=== PATIENT | female | born 1955 | race Caucasian/White ===

== ENCOUNTER 2022-07-01 08:16 | Outpatient (CLI) | payer MEDICARE, SELFPAY ==
[2022-07-01 20:44] LABS: Alanine Aminotransferase 25 U/L (6-35); Albumin Level 4.1 g/dL (3.5-5.1); Alkaline Phosphatase 52 U/L (38-126); Anion Gap 4 mmol/L (8-16); Aspartate Amino Transferase 39 U/L (14-36); Bilirubin,Total 0.7 mg/dL (0.2-1.3); Blood Urea Nitrogen 16 mg/dL (7-17); Calcium 9.2 mg/dL (8.4-10.2); Carbon Dioxide 28 mmol/L (22-30); Chloride 105 mmol/L (98-107); Cholesterol 136 mg/dL (0-200); Estimated Glomerular Filt Rate > 60; Glucose 111 mg/dL (65-110); HDL Direct 30 mg/dL; Potassium 4.4 mmol/L (3.4-5.0); Sodium 137 mmol/L (137-145); Triglycerides 177 mg/dL (<150)
[2022-07-01 20:45] LABS: Basophils Absolute Auto 0.1 K/mm3 (0.0-0.1); Basophils Percent Auto 0.9 % (0.2-1.2); Eosinophils Absolute Auto 0.2 K/mm3 (0-0.3); Eosinophils Percent Auto 2.6 % (0-4.4); Hematocrit 42.6 % (37.0-47.0); Immature Granulocyte Absolute 0.02 K/mm3 (0.00-0.031); Immature Granulocyte Percent A 0.3 % (0-0.5); Lymphocytes Absolute Auto 2.29 K/mm3 (0.9-3.2); Lymphocytes Percent Auto 34.8 % (18.3-44.2); Mean Corpuscular HGB Conc 32.9 g/dl (32-36); Mean Corpuscular Hemoglobin 28.2 pg (26-34); Mean Corpuscular Volume 85.7 fl (80-100); Mean Platelet Volume 11.1 fl (7.4-10.4); Monocytes Absolute Auto 0.6 K/mm3 (0.1-0.6); Monocytes Percent Auto 8.7 % (2.6-8.5); Neutrophils Absolute Auto 3.5 K/mm3 (1.3-6.7); Neutrophils Percent Auto 52.7 % (45.5-73.1); Platelet Count Result 283 k/mm3 (150-375); Red Blood Count 4.97 M/mm3 (4.2-5.4); Red Cell Distribution Width 13.6 % (11.5-14.5); White Blood Count 6.6 K/mm3 (4.5-10.0)
[2022-07-01 20:55] LABS: LDL Cholesterol Direct 70 mg/dL
[2022-07-01 21:07] LABS: Hemoglobin A1C 6.2 % (<5.7)
== END 2022-07-01 08:17 | disposition home or self-care (01) ==
LOC: ANHGOSHLAB 08:18
PROVIDERS: PCP Family Medicine; Visit Provider Physician Assistant
DX: E78.5 Hyperlipidemia, unspecified (principal); I10 Essential (primary) hypertension; Z83.49 Family history of other endocrine, nutritional and metabolic diseases; Z79.899 Other long term (current) drug therapy
CPT/HCPCS: 36415; 80053; 80061; 83036; 84443; 85025

== ENCOUNTER 2022-07-01 09:02 | Outpatient (CLI) | payer MEDICARE, SELFPAY ==
--- NOTE | ~2022-07-01 | US_ITS ---
US abdomen limited INDICATION: Right upper quadrant pain for 2 weeks PROCEDURE: Realtime right upper abdominal ultrasound. COMPARISON: No prior studies for comparison. FINDINGS: The pancreas is normal without focal mass or pancreatic ductal dilation. Liver echotexture is normal without focal mass or intrahepatic biliary dilatation. There is normal directional flow i n the portal vein. The gallbladder is normal without stones, gallbladder wall thickening or pericholecystic fluid. Comm on bile duct measures 4 mm. No sonographic Rodriguez's sign. IMPRESSION: 1: Normal limited abdominal ultrasound. Reviewed, dictated and finalized at location B. [employer]
== END 2022-07-01 09:03 | disposition home or self-care (01) ==
PROVIDERS: PCP Family Medicine; Visit Provider Physician Assistant
DX: R10.11 Right upper quadrant pain (principal); E78.5 Hyperlipidemia, unspecified; I10 Essential (primary) hypertension; Z83.49 Family history of other endocrine, nutritional and metabolic diseases; Z79.899 Other long term (current) drug therapy
CPT/HCPCS: 36415; 76705; 80053; 80061; 83036; 84443; 85025

== ENCOUNTER 2022-07-14 08:40 | Outpatient (CLI) | payer MEDICARE, SELFPAY ==
--- NOTE | ~2022-07-14 | DEXA_ITS ---
Bone Density Report Name: LAUREL SNOW Age: 66 Sex: Female Ethnicity: White Date of : 1955 Indication: postmenopausal; screening for osteoporosis; height loss; hysterectomy; Referring Provider: WIL PAUL Study: Bone densitometry was performed. Exam Date: July 14, 2022 Accession number: [id number] Bone Density: Region BMD T-score Z-score Classification AP Spine(L1-L4) 1.060 0.1 2.2 Normal Femoral Neck (Left) 0.681 -1.5 0.2 Osteopenia Total Hip (Left) 0.906 -0.3 1.1 Normal Femoral Neck (Right) 0.633 -1.9 -0.2 Osteopenia Total Hip (Right) 0.818 -1.0 0.4 Normal Total Hip Mean 0.862 -0.7 0.8 Normal World Health Organization criteria for BMD impression classify patients as: Normal (T-score at or above -1.0), Osteopenia (T-score between -1.0 and -2.5), or Osteoporosis (T-score at or below -2.5). 10-year Fracture Risk(1): Major Osteoporotic Fracture 11% Hip Fracture 1.8% Reported Risk Factors: [place] (), Neck BMD=0.633, BMI=30.6 (1) FRAX(R) Version 3.08. Fracture probability calculated for an untreated patient. Fracture probability may be lower if the patient has received treatment. Clinical Information Provided by Patient: Has the following medical conditions: Hysterectomy Patient maximum height was 64.5 Menopause Age: 40 No regular weight bearing exercise Drinks caffeinated beverages Onset of menses at age 11 Number of children 7 Impression: The patient has low bone mass, based on the Right Femoral Neck T-score. The patient has an estimated ten-year risk of hip fracture of 1.8% and an estimated ten-year risk of major fracture of 11%, based on the WHO FRAX algorithm. Discussion: BONE DENSITY IS LOW AT ONE OR MORE SKELETAL SITES. This patient's lowest T-score is low at one or more skeletal sites. It meets the World Health Organization's (WHO) criteria for ?low bone mass? (T-score between -1.0 and -2.5). The patient's 10-year risk of fracture as calculated by FRAX is less than the threshold where pharmacological therapy is recommended by the National Osteoporosis Foundation (NOF). However, all treatment decisions require clinical judgment and consideration of individual patient factors, including patient preferences, comorbidities, previous drug use, risk factors not captured in the FRAX model (e.g., frailty, falls, vitamin D deficiency, increased bone turnover, interval significant decline in bone density) and possible under or overestimation of fracture risk by FRAX. The patient should follow a healthful lifestyle (good nutrition with adequate calcium and vitamin D, and appropriate weight-bearing exercise). Follow-Up: Consider repeating this study in 2 to 3 years to reassess this patient's status, or sooner if there is some new clinical indication.
== END 2022-07-14 08:41 | disposition home or self-care (01) ==
LOC: ANHIMG 08:42
PROVIDERS: PCP Family Medicine; Visit Provider Physician Assistant
DX: Z78.0 Asymptomatic menopausal state (principal); M85.852 Other specified disorders of bone density and structure, left thigh; M85.851 Other specified disorders of bone density and structure, right thigh
CPT/HCPCS: 77080

== ENCOUNTER 2022-11-18 08:11 | Outpatient (CLI) | payer MEDICARE, SELFPAY ==
[2022-11-18 13:01] LABS: Alanine Aminotransferase 40 U/L (6-35); Albumin Level 4.1 g/dL (3.5-5.1); Alkaline Phosphatase 53 U/L (38-126); Anion Gap 4 mmol/L (8-16); Aspartate Amino Transferase 52 U/L (14-36); Bilirubin,Total 0.7 mg/dL (0.2-1.3); Blood Urea Nitrogen 21 mg/dL (7-17); Calcium 9.4 mg/dL (8.4-10.2); Carbon Dioxide 32 mmol/L (22-30); Chloride 103 mmol/L (98-107); Estimated Glomerular Filt Rate > 60; Glucose 102 mg/dL (65-110); Sodium 139 mmol/L (137-145)
[2022-11-18 13:13] LABS: LDL Cholesterol Direct 83 mg/dL
[2022-11-18 13:18] LABS: Cholesterol 154 mg/dL (0-200); HDL Direct 35 mg/dL
[2022-11-18 13:24] LABS: Triglycerides 198 mg/dL (<150)
[2022-11-18 13:59] LABS: Vitamin D 25 Hydroxy 67.3 ng/mL
== END 2022-11-18 08:12 | disposition home or self-care (01) ==
LOC: ANHGOSHLAB 08:12
PROVIDERS: Physician Assistant; PCP Family Medicine; Visit Provider Family Medicine
DX: R73.03 Prediabetes (principal); Z78.0 Asymptomatic menopausal state
CPT/HCPCS: 36415; 80053; 80061; 82306; 83036

== ENCOUNTER 2022-11-22 07:54 | Outpatient (CLI) | payer MEDICARE, SELFPAY ==
[2022-11-22 18:43] LABS: Alanine Aminotransferase 43 U/L (6-35); Albumin Level 4.4 g/dL (3.5-5.1); Alkaline Phosphatase 58 U/L (38-126); Aspartate Amino Transferase 92 U/L (14-36); Bilirubin,Total 0.6 mg/dL (0.2-1.3)
[2022-11-22 19:17] LABS: Hepatitis B Surface Antigen Negative (Negative)
[2022-11-22 19:24] LABS: HAV RESULT Negative (Negative); Hepatitis B Core IgM Result Negative (Negative)
[2022-11-22 19:34] LABS: Hepatitis C Virus Antibody Negative (Negative)
== END 2022-11-22 07:55 | disposition home or self-care (01) ==
LOC: ANHGOSHLAB 07:56
PROVIDERS: PCP Family Medicine; Visit Provider Family Medicine
DX: R74.8 Abnormal levels of other serum enzymes (principal); Z20.828 Contact with and (suspected) exposure to other viral communicable diseases
CPT/HCPCS: 36415; 80074; 80076; 82728

== ENCOUNTER 2022-12-20 09:56 | Emergency (ER) | payer MEDICARE, SELFPAY ==
[2022-12-20 10:15] VITALS: BP 153/77; PULSE 81; RESP 16; TEMP 37.9; O2SAT 98
[2022-12-20 10:18] VITALS: BP 153/77; PULSE 81; RESP 16; TEMP 37.9; O2SAT 98
--- NOTE | 2022-12-20 10:35 | ED.NAVMDI ---
HPI - Nausea/Vomiting/Diarrhea General Chief complaint: Nausea/Vomiting/Diarrhea Stated complaint: dizziness nausea and fever Time Seen by Provider: 12/20/22 10:35 Source: patient, RN notes reviewed and old records reviewed Mode of arrival: ambulatory Limitations: no limitations History of Present Illness HPI Narrative: 67-year-old female who presents [facility] with complaints nausea, dizziness, headache, having intermittent fever since . Patient states she thinks she may have gotten overheated when she was watering garden. Patient states she has not been able to eat since then has been keeping fluids down trying to drink lots of water and did drink some rehydrate today.Patient does report burning with urination which started on Tuesday morning and also states she has some intermittent pressure sensations in upper chest, denies any shortness of breath. Patient has history of hypertension and glaucoma. Patient has had fevers highest of 101F and last took Tylenol last night.Patient reports chills and sweats. MD elicited complaint: nausea and other (Dizziness, nausea, burning with urination, fever, pressure chest) Pertinent past history: other (hypertension and glaucoma) Onset (ago): day(s) (4) Associated nausea: Yes Associated abdominal pain: No Pain scale (0-10): 0 Treatment prior to arrival: other (Tylenol) Related Data Home Medications Medication Instructions Recorded Confirmed multivitamin (Daily Multi-Vitamin 1 tablet PO DAILY 09/24/20 12/20/22 tablet) omega-3 fatty acids 1,000 mg 1,000 mg PO DAILY 09/24/20 12/20/22 capsule (Fish Oil Concentrate) aspirin 81 mg tablet 81 mg PO DIRECTED 04/20/22 12/20/22 bimatoprost 0.01 % eye drops 1 drp EACH EYE DAILY 04/20/22 12/20/22 (Lumigan) timolol maleate 0.5 % eye drops 1 drp EACH EYE BID 06/24/22 12/20/22 cholecalciferol (vitamin D3) 25 25 mcg PO BID 12/20/22 12/20/22 mcg (1,000 unit) tablet Allergies Allergy/AdvReac Type Severity Reaction Status Date / Time No Known Allergies Allergy Verified 12/20/22 11:40 Review of Systems Review of Systems: CONSTITUTIONAL: Positive for fever, chills, or sweats. EYES: Denies visual changes, redness, or discharge. ENT: Denies rhinorrhea, congestion, sore throat, or otalgia. CARDIOVASCULAR: intermittent upper chest pressure, no palpitations, or edema. RESPIRATORY: Denies cough or dyspnea. GASTROINTESTINAL: Denies abdominal pain, reports nausea, no vomiting, or diarrhea. GENITOURINARY: Reports dysuria and hematuria. SKIN: Denies rash or itching. MUSCULOSKELETAL: Denies back pain, joint pain, or myalgia. NEUROLOGIC: Reports headache,no numbness, states weakness reports dizziness PSYCHIATRIC: Denies anxiety or depression. All systems reviewed & are unremarkable except as noted in HPI and below PMFSH Past Medical History Medical History Contact dermatitis Elevated lipids History of 3 spontaneous abortions History of vaginal delivery x6 Hypertension Mouth dryness Right upper quadrant pain Tinea Tinea corporis Urinary symptom or sign Surgical History Surgical History History of bilateral tubal ligation History of hysterectomy Family History Family History Grandparent Family history of blood dyscrasia Family history of type 2 diabetes mellitus Father Hypertension Family history of type 2 diabetes mellitus Mother Family history of type 2 diabetes mellitus Other Family history of malignant neoplasm of bone Family history of malignant neoplasm of breast Social History Social History Smoking status: Never smoker Alcohol intake: current Drinks per week: 1 Substance use: never Substance use type: does not use Lack of Transportation: No Lack of Food: Andrea
--- NOTE | 2022-12-20 10:45 | ECG_ITS ---
Measurements Intervals [place] Rate: 76 P: 56 MO: 179 QRS: 20 QRSD: 98 T: 56 QT: 348 QTc: 393 Interpretive Statements SINUS RHYTHM POSSIBLE LEFT ATRIAL ENLARGEMENT [-0.1mV P WAVE IN V1/V2] NORMAL ECG NO PREVIOUS ECG AVAILABLE FOR COMPARISON Electronically Signed On 12-22-2022 12:07:08 CDT by Monty Mckenna M.D.
[2022-12-20 10:50] LABS: Glucose Point of Care 123 mg/dl (65-105)
== END 2022-12-20 11:15 | disposition short-term general hospital (02) ==
LOC: EXPGOSH 09:59
PROVIDERS: Emergency Provider Registered Nurse; PCP Family Medicine
DX: R07.89 Other chest pain (principal); R42 Dizziness and giddiness; R11.0 Nausea; R30.0 Dysuria; I10 Essential (primary) hypertension; Z79.82 Long term (current) use of aspirin
CPT/HCPCS: 81003; 82948; 93005; 99213; G0463

== ENCOUNTER 2023-01-21 08:37 | Outpatient (CLI) | payer MEDICARE, SELFPAY ==
[2023-01-21 18:44] LABS: Alanine Aminotransferase 38 U/L (6-35); Albumin Level 3.9 g/dL (3.5-5.1); Alkaline Phosphatase 49 U/L (38-126); Anion Gap 4 mmol/L (8-16); Aspartate Amino Transferase 39 U/L (14-36); Bilirubin,Total 0.7 mg/dL (0.2-1.3); Blood Urea Nitrogen 22 mg/dL (7-17); Calcium 9.3 mg/dL (8.4-10.2); Carbon Dioxide 31 mmol/L (22-30); Chloride 100 mmol/L (98-107); Estimated Glomerular Filt Rate > 60; Glucose 106 mg/dL (65-110); Potassium 4.1 mmol/L (3.4-5.0); Sodium 135 mmol/L (137-145)
== END 2023-01-21 08:38 | disposition home or self-care (01) ==
LOC: ANHGOSHLAB 08:38
PROVIDERS: PCP Family Medicine; Visit Provider Family Medicine
DX: R74.8 Abnormal levels of other serum enzymes (principal); Z20.828 Contact with and (suspected) exposure to other viral communicable diseases; R73.03 Prediabetes; E87.1 Hypo-osmolality and hyponatremia
CPT/HCPCS: 36415; 80048; 80076; 83036

== ENCOUNTER 2023-07-05 07:56 | Outpatient (CLI) | payer MEDICARE, SELFPAY ==
[2023-07-05 11:47] LABS: Alanine Aminotransferase 28 U/L (6-35); Alkaline Phosphatase 61 U/L (38-126); Anion Gap 7 mmol/L (8-16); Aspartate Amino Transferase 45 U/L (14-36); Bilirubin,Total 0.5 mg/dL (0.2-1.3); Blood Urea Nitrogen 21 mg/dL (7-17); Calcium 9.8 mg/dL (8.4-10.2); Carbon Dioxide 27 mmol/L (22-30); Chloride 104 mmol/L (98-107); Cholesterol 191 mg/dL (0-200); Estimated Glomerular Filt Rate > 60; Glucose 97 mg/dL (65-110); HDL Direct 38 mg/dL; Potassium 4.1 mmol/L (3.4-5.0); Sodium 138 mmol/L (137-145); Triglycerides 190 mg/dL (<150)
[2023-07-05 11:58] LABS: LDL Cholesterol Direct 107 mg/dL
== END 2023-07-05 07:57 | disposition home or self-care (01) ==
PROVIDERS: PCP Family Medicine; Visit Provider Family Medicine
DX: E78.5 Hyperlipidemia, unspecified (principal); R74.8 Abnormal levels of other serum enzymes
CPT/HCPCS: 36415; 80053; 80061

== ENCOUNTER 2024-01-24 09:27 | Outpatient (CLI) | payer MEDICARE, SELFPAY ==
[2024-01-24 13:10] LABS: Alanine Aminotransferase 30 U/L (6-35); Albumin Level 4.2 g/dL (3.5-5.1); Alkaline Phosphatase 59 U/L (38-126); Anion Gap 7 mmol/L (4-12); Aspartate Amino Transferase 67 U/L (14-36); Basophils Absolute Auto 0.1 K/mm3 (0.0-0.1); Basophils Percent Auto 0.7 % (0.2-1.2); Bilirubin,Total 0.8 mg/dL (0.2-1.3); Blood Urea Nitrogen 19 mg/dL (7-17); Calcium 9.5 mg/dL (8.4-10.2); Carbon Dioxide 29 mmol/L (22-30); Chloride 100 mmol/L (98-107); Cholesterol 180 mg/dL (0-200); Eosinophils Absolute Auto 0.1 K/mm3 (0-0.3); Eosinophils Percent Auto 1.2 % (0-4.4); Estimated Glomerular Filt Rate > 60; Glucose 93 mg/dL (65-110); HDL Direct 38 mg/dL; Hematocrit 41.8 % (37.0-47.0); Immature Granulocyte Absolute 0.03 K/mm3 (0.00-0.031); Immature Granulocyte Percent A 0.4 % (0-0.5); Lymphocytes Absolute Auto 3.17 K/mm3 (0.9-3.2); Lymphocytes Percent Auto 43.5 % (18.3-44.2); Mean Corpuscular HGB Conc 33.5 g/dl (32-36); Mean Corpuscular Hemoglobin 29.4 pg (26-34); Mean Corpuscular Volume 87.8 fl (80-100); Mean Platelet Volume 11.1 fl (7.4-10.4); Monocytes Absolute Auto 0.6 K/mm3 (0.1-0.6); Neutrophils Absolute Auto 3.4 K/mm3 (1.3-6.7); Neutrophils Percent Auto 46.2 % (45.5-73.1); Platelet Count Result 286 k/mm3 (150-375); Potassium 4.1 mmol/L (3.4-5.0); Red Blood Count 4.76 M/mm3 (4.2-5.4); Red Cell Distribution Width 14.1 % (11.5-14.5); Sodium 136 mmol/L (137-145); Triglycerides 221 mg/dL (<150); White Blood Count 7.3 K/mm3 (4.5-10.0)
[2024-01-24 13:21] LABS: LDL Cholesterol Direct 111 mg/dL
[2024-01-25 18:23] LABS: Hemoglobin A1C 6.1 % (<5.7)
== END 2024-01-24 09:28 | disposition home or self-care (01) ==
PROVIDERS: PCP Family Medicine; Visit Provider Physician Assistant
DX: E78.5 Hyperlipidemia, unspecified (principal); I10 Essential (primary) hypertension; R73.03 Prediabetes; E66.9 Obesity, unspecified; Z79.899 Other long term (current) drug therapy
CPT/HCPCS: 36415; 80053; 80061; 83036; 84443; 85025

== ENCOUNTER 2025-02-11 08:04 | Outpatient (CLI) | payer MEDICARE, SELFPAY ==
--- OUTSIDE RECORDS SUMMARY | 2025-02-11 08:10 | XMS_ITS | Data Portability ---
Author Organization [facility], [address] ([place]) Address [address] [place] [address] Care Team Providers Care Home Service Demonstrator Name Role Phone DOMINGOCARLENEMARLYN Primary Care Provider Assessment No assessment recorded. Plan of Treatment Reminders Order Date Submit Date Provider Last Modified By Organization Details Last Modified Time Details Appointments Establish ed Patient 15.EST 2025 08:15A M Dr. Jaylyn Tidwell Not available Not available Not available Lab None recorded. Referral None recorded. Procedures None recorded. Surgeries None recorded. Imaging None recorded. Medication Orders None recorded. Patient TargetsNo targets recorded. Patient InstructionsNo instructions recorded. Reason for Referral None Reported. Problems Name Problem SNOMED Code Status Onset Date Resolution Date Notes Provider Name and Address Organization Details Recorded Time Seborrheic ker[facility] 541591369 [facility] Hemangioma of skin 65039540 [facility]32 Lentiginosis 449347685 Active 2024 Sophia Yancey [facility] 5 16:03:38 Dermatophytos is 57115730 Active 2024 Sophia Yancey [facility] 5 16:04:13 Tinea corporis 59089613 Active 2024 Alda Colon [facility] 5 18:18:35 Problem Notes None recorded. Procedures Surgical History Date Name Laterality Status Provider Name and Address Organization Details Recorded Time Colonoscopy with biopsy completed Not Available Health Note 08/07/2024 13:34:11 Partial hysterectomy completed Not Available Health Note 08/07/2024 13:34:11 Imaging Results None recorded. Procedure Notes None recorded. Medical Equipment None Reported. Medications Name Sig Start Date Stop Date Status Note LastModified by Organization Details LastModified Time timolol maleate 0.5 % eye drops INSTILL ONE DROP IN BOTH EYES TWICE DAILY active Not Available Not Available No t Available ketoconazole 2 % topical cream APPLY TO THE AFFECTED AREA(S) BY TOPICAL ROUTE ONCE DAILY as needed 2024 active Not Available Not Available Not Avai lable losartan 100 mg-hydrochloro thiazide 12.5 mg tablet TAKE 1 TABLET BY MOUTH DAILY active Not Available Not Available No t Available Lumigan 0.01 % eye drops INSTILL 1 DROP INTO BOTH EYES EVERY NIGHT AT BEDTIME DIRECTED active Not Available Not Available No t Available Vitals None Recorded Social History Question Answer Notes LastModified by Organizat ion Details LastModified Time Tobacco Smoking Status Never Smoker Not Available Health Note 08/07/2024 13:34:12 Do You Have An Advance Directive? Yes [email or web address] Information not available 08/07/2024 What Is Your Level Of Caffeine Consumption? Moderate [email or web address] Information not available 08/07/2024 What Is Your Code Status? DNR [email or web address] Information not available 08/07/2024 How Many Times Per Week Do You Exercise? 1-2 Times Per Week [email or web address] Information not available 08/07/2024 What Was The Date Of Your Most Recent Tobacco Screening? 08/13/2024 [email or web address] Information not available 08/07/2024 What Is Your Relationship Status? [email or web address] Information not available 08/07/2024 Sex: Unknown Functional Status Question Answer Note LastModified by Organizat ion Details LastModified Time How many times per week do you consume alcohol? Less than 1 time per week [email or web address] Information not available 08/07/2024 Do you use any illicit or recreational drugs? No [email or web address] Information not available 08/07/2024 What is your level of alcohol consumption? Occasional [email or web address] Information not available 08/07/2024 Are you currently employed? No [email or web address] Information not available 08/07/2024 What is your occupation? retired teacher [email or web address] Information not available 08/07/2024 What is your exercise level? Moderate [email or web address] Information not available 08/07/2024 Mental Status None recorded. Family History Relationship Description Onset Age of this Age Resolved Age Notes LastModified by Organization Details LastModified Time Mother Arthritis [email or web address] Not available 08/07/2024 13:34:10 Mother Family history of malignant neoplasm [email or web address] Not available 2024 13:34:10 Mother Chronic obstructive pulmonary disease [email or web address] Not available 2024 13:34:10 Mother Diabetes mellitus [email or web address] Not available 2024 13:34:10 Mother Hypertensive disorder [email or web address] Not available 2024 13:34:10 Mother Hypercholest erolemia [email or web address] Not available 2024 13:34:10 Mother Cerebrovascu lar accident [email or web address] Not available 13:34:10 Father Arthritis [email or web address] Not available 08/07/2024 13:34:10 Father Family history of malignant neoplasm [email or web address] Not available 2024 13:34:10 Father Diabetes mellitus [email or web address] Not available 2024 13:34:10 Father Heart disease [email or web address] Not available 2024 13:34:10 Father Hypertensive disorder [email or web address] Not available 2024 13:34:10 Father Hypercholest erolemia [email or web address] Not available 2024 13:34:10 Sister Arthritis [email or web address] Not available 08/07/2024 13:34:10 Maternal Grandmother Arthritis [email or web address] Not available 07/19 13:34:10 Maternal Grandmother Hypercholest erolemia [email or web address] Not available 2024 13:34:10 Paternal Grandmother Arthritis [email or web address] Not available 07/19 13:34:10 Paternal Grandmother Family history of malignant neoplasm [email or web address] Not available 2024 13:34:10 Daughter Family history of malignant neoplasm [email or web address] Not available 2024 13:34:10 Maternal Grandfather Heart disease [email or web address] Not available 2024 13:34:10 Medical History Condition Response High Blood Pressure Y COPD N Depression N Anxiety Disorder N Arthritis Y Cancer N Stroke N Fibromyalgia N Kidney Disease N Attention-deficit Hyperactivity Disorder N Thyroid Problems N Anemia N Diabetes N Bleeding Disorder N Hyperlipidemia N Asthma N Seizures N Heart Disease N Osteoporosis N Gynecological HistoryNo gynecological history recorded. Obstetrics History GPAL:G 0 P 0 0 0 0 Past Encounters Encounter ID Performer Location Encounter Start Date Encounter Closed Date Diagnosis/Indication Diagnosis SNOMED-CT Code Diagnosis ICD10 Code Diagnosis Note [id number] Jaylyn Tidwell MD [facility] ([place] [address] [place] [address] 08/13/2024 15:40:14 08/13/2024 16:17:55 Seborrheic keratosis 570405086 L82.1 {{Hemangio ma Hemangi omas Sebor rheic keratoses* Seborrhei c keratoses* Dermatofi broma Derm atofibroma s Acrochor don Acroch orda Intra dermal nevus Intr adermal nevi Sebac eous hyperplasi a Telangie ctasia Tel angiectase s Milium M jeremy Open comedone O pen comedones Neurofibro ma Neurofi bromas Lip yamileth Lipoma s Fibrous papule Fib odin papules Cy st Cysts}} {{Hemangio ma Hemangi omas* Sebo rrheic keratoses Seborrheic keratoses Dermatofib javed [place] tofibromas Acrochord on Acrocho antisqueak worker Intrad ermal nevus Intr adermal nevi Sebac eous hyperplasi a [place] ctasia Tel angiectase s Milium M jeremy Open comedone O pen comedones Neurofibro ma Neurofi bromas Lip yamileth Lipoma s Fibrous papule Fib odin papules Cy st Cysts}} We discussed the fact that these are benign lesions requiring no treatment. We discussed the fact that removal would be considered a cosmetic procedure and would not be covered by insurance. The patient was advised that more such lesions may develop. The patient is not bothered by the lesions and does not wish to have them treated. We will observe. Hemangioma of skin 49491 006 D18.01 Lentiginosis 313365667 L 81.4 Lentigines . We discussed the fact that lentigines are actinicall y induced and that they are benign. We discussed the fact that they should be watched carefully for change. We discussed the importance of photoprote ction using protective clothing and sunscreen with SPF 30 or higher on a regular basis. We will observe. Dermatophytosis [id number] B35.9 History of tinea. Resolved on current treatment regimen. I suggested that patient continue with the current treatment regimen of: Ketoconazo le prn. If the condition progresses , flares, or changes, or if patient encounters problems with medication s, patient was asked to call the office. I advised patient to return in 1 year. Health Concerns Section Related Observation LastModified by Organization Detai ls LastModified Time None Recorded Concern Status LastModified by Organization Details LastModified Time None Recorded Advance Directives Directive Y: Payers Insurance Date Sequence Insurance Name Policy Number Policy Apple Covered Member ID Apple Member ID Guarantor Name 08/21/2024 1 [employer] (MEDICARE REPLACEMENT/ ADVANTAGE - PPO) [id number] Regina Harrison [id number] Regina Harrison 08/21/2024 2 [place] Regina Harrison [id number] Regina Harrison OBGyn Episode No OBEpisode recorded.
--- OUTSIDE RECORDS SUMMARY | 2025-02-11 08:11 | XMS_ITS | Data Portability ---
Author Organization [facility] ENMAKiara Torres Address [address] [place] [address] Assessment No assessment recorded. Plan of Treatment Reminders Order Date Submit Date Provider Last Modified By Organization Details Last Modified Time Details Appointments None record ed. Lab None record ed. Referral None record ed. Procedures None record ed. Surgeries None record ed. Imaging None record ed. Medication Orders None record ed. Patient TargetsNo targets recorded. Patient Instructions Encounter Date Encounter Id Patient Instructions Last Modified By Organization Details Last Modified Time 10/31/2014 [id number] uri sore throat son pos for strep zpak Cepacol anti inflammatory [email or web address] Not available 10/31/2014 14:39:49 07/30/2015 [id number] plantar fascia stretching exercises [email or web address] Not available 07/30/2015 14:54:57 Reason for Referral None Reported. Results Created Date Observation Date Name Description Value Unit Range Abnormal Flag Note LastModifiedBy Organization Detail LastModifiedTime 11/01/19 15 10/31/2014 rapid strep group A, throa t Strep negati ve Not Available In-Office Order Internal Use Only DO Not Attach Compendium DO Not Attach Compendium, Do Not Delete/merge, [id number] 10/31/2014 15:18:02 10/14/19 16 10/14/2015 CBC w/ diff WBC 7.6 X10'3 /uL 4.8-10 .8 Not Available [facility], [place], [address], 10/14/2015 20:14:54 10/14/19 16 10/14/2015 CBC w/ diff RBC 5.12 X10'6 /uL 4.20-5 .40 Not Available [facility], [place], [address], 10/14/2015 20:14:54 10/14/19 16 10/14/2015 CBC w/ diff hemoglobin 14.0 g/dL 12.0-1 6.0 Not Available [facility] [place], [address], 10/14/2015 20:14:54 10/14/19 16 10/14/2015 CBC w/ diff hematocrit 43.9 % 38.0-4 8.0 Not Available [facility], [place], [address], 10/14/2015 20:14:54 10/14/19 16 10/14/2015 CBC w/ diff MCV 85.7 fL 81.0-9 9.0 Not Available [facility], [place], [address], 10/14/2015 20:14:54 10/14/19 16 10/14/2015 CBC w/ diff MCH 27.3 pg 27.0-3 1.0 Not Available [facility] [place], [address], 10/14/2015 20:14:54 10/14/19 16 10/14/2015 CBC w/ diff MCHC 31.9 g/dL 32.0-3 6.0 [place], [address], 10/14/2015 20:14:54 10/14/19 16 10/14/2015 CBC w/ diff RDW 15.1 % 11.5-1 4.5 [place], [address], 10/14/2015 20:14:54 10/14/19 16 10/14/2015 CBC w/ diff platelet count 284 X10'3 /uL 130-40 0 Not Available [facility] [place], [address], 10/14/2015 20:14:54 10/14/19 16 10/14/2015 CBC w/ diff MPV 10.6 fL 9.3-12 .2 Not Available [facility] [place], [address], 10/14/2015 20:14:54 10/14/19 16 10/14/2015 CBC w/ diff differential type AUTOMA [place], [address], 10/14/2015 20:14:54 10/14/19 16 10/14/2015 CBC w/ diff neutrophil 45.7 % 43.0-6 5.0 [place], [address], 10/14/2015 20:14:54 10/14/19 16 10/14/2015 CBC w/ diff lymphocyte 43.3 % 20.0-4 6.0 [place], [address], 10/14/2015 20:14:54 10/14/19 16 10/14/2015 CBC w/ diff monocyte 7.1 % 5.0-12 .0 [place], [address], 10/14/2015 20:14:54 10/14/19 16 10/14/2015 CBC w/ diff eosinophil 2.9 % 1.0-3. 0 [place], [address], 10/14/2015 20:14:54 10/14/19 16 10/14/2015 CBC w/ diff basophil 0.7 % 0.0-1. 0 [place], [address], 10/14/2015 20:14:54 10/14/19 16 10/14/2015 CBC w/ diff immature granulocytes 0.3 % 0.0-1. 0 [place], [address], 10/14/2015 20:14:54 10/14/19 16 10/14/2015 CMP, serum or plasm a glucose 96 mg/dL 70-99 [place], [address], 10/14/2015 20:47:56 10/14/19 16 10/14/2015 CMP, serum or plasm a BUN 19 mg/dL 8-23 [place], [address], 10/14/2015 20:47:56 10/14/19 16 10/14/2015 CMP, serum or plasm a creatinine 0.72 mg/dL 0.60-1 .10 [place], [address], 10/14/2015 20:47:56 10/14/19 16 10/14/2015 CMP, serum or plasm a sodium 140 mmol/ L 136-14 5 [place], [address], 10/14/2015 20:47:56 10/14/19 16 10/14/2015 CMP, serum or plasm a potassium 4.9 mmol/ L 3.5-5. 1 [place], [address], 10/14/2015 20:47:56 10/14/19 16 10/14/2015 CMP, serum or plasm a chloride 100 mmol/ L 98-107 [place], [address], 10/14/2015 20:47:56 10/14/19 16 10/14/2015 CMP, serum or plasm a CO2 30 mmol/ L 22-29 [place], [address], 10/14/2015 20:47:56 10/14/19 16 10/14/2015 CMP, serum or plasm a total bilirubin 0.5 mg/dL 0.2-1. 2 [place], [address], 10/14/2015 20:47:56 10/14/19 16 10/14/2015 CMP, serum or plasm a calcium 9.9 mg/dL 8.6-10 .2 [place], [address], 10/14/2015 20:47:56 10/14/19 16 10/14/2015 CMP, serum or plasm a alkaline phosphatase 70 IU/L 35-104 [place], [address], 10/14/2015 20:47:56 10/14/19 16 10/14/2015 CMP, serum or plasm a AST/SGOT 21 IU/L 0-32 [place], [address], 10/14/2015 20:47:56 10/14/19 16 10/14/2015 CMP, serum or plasm a total protein 7.1 g/dL 6.4-8. 3 [place], [address], 10/14/2015 20:47:56 10/14/19 16 10/14/2015 CMP, serum or plasm a albumin 4.5 g/dL 3.5-5. 2 [place], [address], 10/14/2015 20:47:56 10/14/19 16 10/14/2015 CMP, serum or plasm a ALT/SGPT 22 IU/L 0-33 [place], [address], 10/14/2015 20:47:56 10/14/19 16 10/14/2015 CMP, serum or plasm a globulin, calc 2.6 g/dL 2.3-3. 6 [place], [address], 10/14/2015 20:47:56 10/14/19 16 10/14/2015 CMP, serum or plasm a A/G ratio, calc 1.7 1.0-2. 0 [place], [address], 10/14/2015 20:47:56 10/14/19 16 10/14/2015 CMP, serum or plasm a anion gap, calc 15 8-[address] [facility], [place], [address], 10/14/2015 20:47:56 10/14/19 16 10/14/2015 CMP, serum or plasm a eGFR nonafrican amer >60 mL/mi n/1.7 3m'2 >60 Not Available [facility], [place], [address], 10/14/2015 20:47:56 10/14/19 16 10/14/2015 CMP, serum or plasm a eGFR amer >60 mL/mi n/1.7 3m'2 >60 NOTE: eGFR is not calcu lated for patie nts <18 years of age. This is an estim ated GFR (CKD EPI) and shoul d not be used for calcu latin g drug doses . Not Available [facility], [place], [address], 10/14/2015 20:47:56 10/14/19 16 10/14/2015 lipid panel , blood cholesterol 172 mg/dL <200 NOTE: Aceta minop hen, N Acety l p benzo lashell ne imine (NAPQ I), N acety lcyst eine (NAC) , Metam izole , 4 Amino antip yrine (4 AAP) and 4 Methy saji o antip yrine (4 MAP) at high julian ntrat ions can cause false ly low resul ts on Lacta te, Uric Acid, Valerie stero l, Trigl yceri de, HDL, and Direc t LDL. Not Available [facility], [place], [address], 10/14/2015 20:47:58 10/14/19 16 10/14/2015 lipid panel , blood triglyceride 97 mg/dL <150 Not Available [facility], [place], [address], 10/14/2015 20:47:58 10/14/19 16 10/14/2015 lipid panel , blood HDL 45 mg/dL >59 low Not Available [facility] [address], [place], [address], 10/14/2015 20:47:58 10/14/19 16 10/14/2015 lipid panel , blood LDL, calc 108 mg/dL <100 high Not Available [facility] [address], [facility] [place], [address], 10/14/2015 20:47:58 10/14/19 16 10/14/2015 lipid panel , blood non HDL, calc 127 mg/dL <130 NOTE: WHEN THE TRIGL YCERI MIROSLAVA ARE >200 mg/dL , NON HDL C IS A SECON DIXON TARGE T OF THERA PY, WITH A GOAL 30 mg/dL HIGHE R THAN THE IDENT IFIED LDL C GOAL. Not Available [facility] [address], [place], [address], 10/14/2015 20:47:58 10/14/19 16 10/14/2015 lipid panel , blood chol/HDL, calc 3.8 0.0-4. 5 Not Available [facility] [place], [address], 10/14/2015 20:47:58 10/14/19 16 10/14/2015 lipid panel , blood VLDL, calc 19 mg/dL 5-55 Not Available [facility], [place], [address], 10/14/2015 20:47:58 10/14/19 16 10/14/2015 lipid panel , blood interpretati on NIH JULIAN NSUS REPOR T RECOM MENDA TIONS : ADULT CHILD LOW RISK: VALERIE STERO L <200 <170 TRIGL YCERI DE <150 --- HDL >=60 --- LDL <100 <110 BORDE RLINE : VALERIE STERO L 200-2 39 170-1 99 TRIGL YCERI DE 150-1 99 --- HDL 40-59 --- LDL 100-1 59 110-1 29 HIGH RISK: VALERIE STERO L >=240 >=200 TRIGL YCERI DE >=200 --- HDL <40 --- LDL >=160 >=130 Not Available [facility], [place], [address], 10/14/2015 20:47:58 10/14/19 16 10/14/2015 TSH, serum or plasm a TSH w/reflex to frt4 2.62 mIU/m L 0.27-4 .20 FREE T4 NOT INDIC ATED Not Available [facility], [place], [address], 10/14/2015 20:47:59 03/06/20 15 03/06/2015 imagi ng/jason ray tic resul t No observ ation record ed. [email or web address] Not Available 2015 14:44:01 Result Notes None recorded. Problems Name Problem SNOMED Code Status Onset Date Resolution Date Notes Provider Name and Address Organization Details Recorded Time Upper respiratory infection 46054122 Active [place]EL [place], [place] - [facility] 6 15:20:39 Pain in throat 365803869 Active [place], [place] [facility] 6 15:20:39 Plantar fasciitis 451915017 Active [place] [facility] 6 15:20:39 Hypertensive disorder 16451993 Active [place] [facility] 6 15:20:39 Essential hypertension 59830923 Active [place] - [facility] 6 15:20:39 Problem Notes None recorded. Procedures Surgical History Date Name Laterality Status Provider Name and Address Organization Details Recorded Time Hysterectomy completed ISRAEL Monsivais - [facility] 07/23/2014 09:13:09 Imaging Results None recorded. Procedure Notes None recorded. Medical Equipment None Reported. Allergies Allergen ID Allergen Name Allergen Category Reaction Reaction Severity Criticality Documentation Date Start Date Code Code System Note Provider Name and Address Organization Details Recorded Time 99262 Biaxin medicatio n Not available Not available Not available 07/23/2014 04813 9 RxNorm Kenisha Thomas MA null, [facility] 5 09:13:10 Medications Name Sig Start Date Stop Date Status Note LastModified by Organization Details LastModified Time azithromycin 250 mg tablet 07/28 completed Not Available Not Available Not Available meloxicam 15 mg tablet active Not Available Not Available No t Available amlodipine 5 mg tablet TAKE ONE TABLET BY MOUTH ONCE DAILY active Not Available Not Available No t Available amlodipine 10 mg tablet active Not Available Not Available Not Available hydrochlorot hiazide 12.5 mg capsule Take 1 capsule every day by oral route for 90 days. active Not Available Not Available No t Available Vitals Date Recorded Respiratory rate Body weight Heart rate Body mass index (BMI) Body height Body temperature Systolic And Diastolic Provider Name and Address Organization Details Last Updated DateTime 5 16 /min 62776.7 029 g 68 /min 29.2 kg/m2 162.56 cm 97.8 [degF] 130/90 mm[Hg] Kenisha Thomas MA [facility] 5 09:13:10 Date Recorded Body temperature Provider Name a nd Address Organization Details Last Updated DateTime 07/30/2015 98 [degF] Latha Puri [employer] Attn: Accounting,[address] [place], [address], [facility] 07/30/2015 14:50:16 Date Recorded Heart rate Respiratory rate Body mass index (BMI) Body weight Body height Systolic And Diastolic Provider Name and Address Organization Details Last Updated DateTime 6 72 /min 16 /min 29.8 kg/m2 62715.3 40148 g 162.56 cm 130/80 mm[Hg] Kenisha Thomas MA [facility] 6 14:24:56 Date Recorded Body weight Body mass index (BMI) Body temperature Respiratory rate Body height Heart rate Systolic And Diastolic Provider Name and Address Organization Details Last Updated DateTime 6 27149.6 14827 g 28.5 kg/m2 97.8 [degF] 16 /min 162.56 cm 70 /min 130/86 mm[Hg] Kenisha Thomas MA [facility] 6 15:20:39 Date Recorded Body height Body mass index (BMI) Body weight Respiratory rate Heart rate Body temperature Systolic And Diastolic Provider Name and Address Organization Details Last Updated DateTime 5 162.56 cm 29.7 kg/m2 20042.7 04513 g 16 /min 76 /min 98.3 [degF] 120/80 mm[Hg] Tatiana Jean MA [facility] 5 14:04:38 Social History None recorded. Functional Status Question Answer Note LastModified by Organizat ion Details LastModified Time What is your level of alcohol consumption? Occasional [id number] Information not available 05/20/2020 Mental Status None recorded. Family History Relationship Description Onset Age of this Age Resolved Age Notes LastModified by Organization Details LastModified Time Father Human immunodefici ency virus with secondary cancers [email or web address] Not available 2014 09:13:10 Father Diabetes mellitus [email or web address] Not available 2014 09:13:10 Mother Diabetes mellitus [email or web address] Not available 2014 09:13:10 Medical History Condition Response High Blood Pressure Y Gynecological HistoryNo gynecological history recorded. Obstetrics History GPAL:G 0 P 0 0 0 0 Immunizations Vaccine Type Date Status Note Provider Nam e and Address Organization Details Recorded Time Tdap 12/08/2011 completed Kenisha Thomas MA [place], [place] - [facility] 07/29/2015 16:15:19 Past Encounters Encounter ID Performer Location Encounter Start Date Encounter Closed Date Diagnosis/Indication Diagnosis SNOMED-CT Code Diagnosis ICD10 Code Diagnosis Note [id number] [facility] [address] [place] [phone] 07/23/2014 09:00:45 07/23/2014 09:43:29 Essential hypertension 93581278 reviewed meds and labs repeat bp 130/86 will repeat tsh in 6mo [id number] MD [facility] [address] [place] [phone] 10/31/2014 13:45:15 10/31/2014 14:45:02 Upper respiratory infection 85281080 Pain in throat 021184993 [id number] Danuta Vale MD [facility] [address] [phone] 07/30/2015 13:57:43 07/30/2015 15:15:46 Plantar fasciitis 084796061 M72.2 ice, good support--t aping demonstate d take ibuprofen reg for 1-2 wks george if no better [id number] Danuta Vale MD [facility] [address] [phone] 10/22/2015 15:03:27 10/22/2015 16:42:47 Adult health examination 342201343 Z00.00 reviewed lab and meds--no changes--u p-to-date to vaccines. ok to work Health Concerns Section Related Observation LastModified by Organization Detai ls LastModified Time None Recorded Concern Status LastModified by Organization Details LastModified Time None Recorded Advance Directives Directive None Recorded Payers Insurance Date Sequence Insurance Name Policy Number Policy Apple Covered Member ID Apple Member ID Guarantor Name 12/06/2016 1 [employer] - DOS PRIOR TO 21 - [facility] [employer] [employer] Regina Harrison [id number] Regina Harrison OBGyn Episode No OBEpisode recorded.
--- OUTSIDE RECORDS SUMMARY | 2025-02-11 08:11 | XMS_ITS | Clinical Summary ---
Author Organization [facility] Address [address] [place] [address] Care Team Providers Care Program Eligibility Specialist Name Role Phone Unavailable Primary Care Provider Unavailabl e Social History Tobacco Use Types Packs/Day Years Used Date Smoking Tobacco: Never Assessed Comments Unknown Sex and Gender Information Value Date Recorded Sex Assigned at Not on file Legal Sex Female 6:01 PM CDT Gender Identity Not on file Sexual Orientation Not on file Plan of Treatment Health Maintenance Due Date Last Done Comments Colorectal Cancer Screening Colonoscopy (10 Years) 1953 Hepatitis C 1971 DTaP, Tdap and Td Vaccines ( 1 - Tdap) 1972 Mammogram Screening 1993 Pneumococcal Vaccine: 50+ Ye ars (1 of 1 - PCV) 2003 Zoster Vaccines (1 of 2) 2003 Dexa Scan (General) 2018 COVID-19 Vaccine ( - 2023-2 5 season) 2024 RSV Immunization or 60+ Years (1 - 1-dose 75+ series) 2028 Meningococcal B Vaccine Aged Out No l onger eligible based on patient's age to complete this topic Meningococcal Vaccine Aged Out No anupam kehinde eligible based on patient's age to complete this topic RSV Immunizations Under 20 Months Aged Out No longer eligible based on patient's age to complete this topic
[2025-02-11 14:23] LABS: Alanine Aminotransferase 30 U/L (6-35); Albumin Level 4.1 g/dL (3.5-5.1); Alkaline Phosphatase 61 U/L (38-126); Anion Gap 7 mmol/L (4-12); Aspartate Amino Transferase 51 U/L (14-36); Bilirubin,Total 0.8 mg/dL (0.2-1.3); Blood Urea Nitrogen 17 mg/dL (7-17); Calcium 9.4 mg/dL (8.4-10.2); Carbon Dioxide 26 mmol/L (22-30); Chloride 95 mmol/L (98-107); Cholesterol 184 mg/dL (0-200); Estimated Glomerular Filt Rate > 60; Glucose 91 mg/dL (65-110); HDL Direct 36 mg/dL; Potassium 3.8 mmol/L (3.4-5.0); Sodium 128 mmol/L (137-145); Total Protein 7.2 g/dL (6.3-8.2); Triglycerides 201 mg/dL (<150)
[2025-02-11 15:02] LABS: Hemoglobin A1C 6.2 % (<5.7)
== END 2025-02-11 08:05 | disposition home or self-care (01) ==
PROVIDERS: PCP Family Medicine; Visit Provider Student in an Organized Health Care Education/Training Program
DX: E78.5 Hyperlipidemia, unspecified (principal); I10 Essential (primary) hypertension; R73.03 Prediabetes
CPT/HCPCS: 36415; 80053; 80061; 83036

== ENCOUNTER 2025-02-21 08:14 | Outpatient (CLI) | payer MEDICARE, SELFPAY ==
[2025-02-21 13:17] LABS: Anion Gap 10 mmol/L (4-12); Blood Urea Nitrogen 17 mg/dL (7-17); Calcium 9.1 mg/dL (8.4-10.2); Carbon Dioxide 24 mmol/L (22-30); Chloride 102 mmol/L (98-107); Estimated Glomerular Filt Rate > 60; Glucose 85 mg/dL (65-110); Potassium 4.3 mmol/L (3.4-5.0); Sodium 136 mmol/L (137-145)
== END 2025-02-21 08:15 | disposition home or self-care (01) ==
LOC: ANHGOSHLAB 08:15
PROVIDERS: PCP Family Medicine; Visit Provider Student in an Organized Health Care Education/Training Program
DX: E87.1 Hypo-osmolality and hyponatremia (principal)
CPT/HCPCS: 36415; 80048